=== PATIENT | female | born 1945 | race Caucasian/White ===

== ENCOUNTER → 2024-12-10 10:55 | Outpatient (REF) | payer OTHER, SELFPAY | LOC: WDC 10:55 | PROVIDERS: ATTENDING PHYSICIAN Nurse Practitioner Family; FAMILY PHYSICIAN Nurse Practitioner Adult Health | DX: Z78.0 Asymptomatic menopausal state (principal); Z12.31 Encounter for screening mammogram for malignant neoplasm of breast | CPT/HCPCS: 77063; 77067 ==

== ENCOUNTER → 2025-02-26 09:47 | Outpatient (REF) | payer OTHER, SELFPAY | LOC: HWRAD 09:47 | PROVIDERS: ATTENDING PHYSICIAN Nurse Practitioner Family; FAMILY PHYSICIAN Nurse Practitioner Adult Health | DX: Z78.0 Asymptomatic menopausal state (principal) | CPT/HCPCS: 77080 ==